=== PATIENT | female | born 1995 | race Caucasian/White ===

== ENCOUNTER 2021-01-03 22:00 | Emergency (ER) | payer MEDICAID, SELFPAY ==
[2021-01-03] MEDS: LORazepam (*CRX) 1 MG TABLET PO (22:18)
[2021-01-03 22:19] VITALS: BP 150/108; PULSE 120; RESP 14; TEMP 36.8; O2SAT 100
[2021-01-03 22:36] LABS: Basophils Absolute Auto 0.1 K/mm3 (0.0-0.1); Basophils Percent Auto 0.4 % (0.2-1.2); Eosinophils Percent Auto 0.1 % (0-4.4); Hemoglobin 11.4 g/dL (12.0-15.0); Immature Granulocyte Absolute 0.05 K/mm3 (0.00-0.031); Immature Granulocyte Percent A 0.3 % (0-0.5); Lymphocytes Absolute Auto 2.98 K/mm3 (0.9-3.2); Mean Corpuscular HGB Conc 29.2 g/dl (32-36); Mean Corpuscular Hemoglobin 23.3 pg (26-34); Mean Corpuscular Volume 79.6 fl (80-100); Mean Platelet Volume 9.7 fl (7.4-10.4); Monocytes Absolute Auto 0.9 K/mm3 (0.1-0.6); Monocytes Percent Auto 5.7 % (2.6-8.5); Neutrophils Absolute Auto 11.7 K/mm3 (1.3-6.7); Neutrophils Percent Auto 74.5 % (45.5-73.1); Platelet Count Result 468 k/mm3 (150-375); Red Cell Distribution Width 19.3 % (11.5-14.5); White Blood Count 15.7 K/mm3 (4.5-10.0)
[2021-01-03 22:47] LABS: Ethanol < 10 mg/dL (<10)
[2021-01-03 22:48] LABS: Alanine Aminotransferase 13 U/L (4-35); Albumin Level 4.4 g/dL (3.5-5.1); Alkaline Phosphatase 94 U/L (38-126); Anion Gap 9 mmol/L (8-16); Aspartate Amino Transferase 19 U/L (14-36); Bilirubin,Total 0.2 mg/dL (0.2-1.3); Calcium 9.3 mg/dL (8.4-10.2); Carbon Dioxide 27 mmol/L (22-30); Chloride 105 mmol/L (98-107); Estimated Glomerular Filt Rate > 60; Glucose 103 mg/dL (65-105); Potassium 3.2 mmol/L (3.4-5.0); Sodium 141 mmol/L (137-145)
[2021-01-03 22:54] LABS: Platelet Estimate Adequate (Adequate)
[2021-01-03 22:55] LABS: Hypochromasia 1+ (NORMAL)
--- NOTE | 2021-01-03 23:09 | PC.NURSE ---
Pt. requesting to leave. Pt. Alert and oriented x4 at this time. Pt. acting appropriately and answering all questions. per ERP pt. can be discharged once the [facility] is back as long as the pt. is released into custody of mother.
[2021-01-03] MEDS: NICOTINE (*PBKC) 21 MG PATCH 1 PATCH TRANSDERM (23:14)
[2021-01-03 23:35] LABS: Add Urine Microscopic? NO; Appearance Urine Clear (Clear); Bilirubin Urine Negative (Negative); Blood Urine Negative (Negative); Color Urine Yellow (Yellow); Glucose Urine UA Negative (Negative); Ketones Urine Negative (Negative); Leukocyte Esterase Ur Negative LEU/UL (Negative); Nitrate Urine Negative (Negative); Protein Urine Negative (Negative); Specific Grav Ur 1.009 (1.001-1.035); Urobilinogen Urine Negative mg/dL (<2.0)
[2021-01-03 23:45] LABS: Blood Urea Nitrogen < 2 mg/dL (7-17)
[2021-01-03 23:53] LABS: Amphetamine Screen Urine Positive (Negative); Barbiturate Screen Urine Negative (Negative); Benzodiazepines Screen Urine Positive (Negative); Cannabinoid Screen Urine Positive (Negative); Cocaine Screen Urine Negative (Negative); Methadone Screen Urine Negative (Negative); Opiate Screen Urine Negative (Negative); Phencyclidine Screen Urine Negative (Negative)
[2021-01-04] MEDS: POTASSIUM CHLORIDE 20 MEQ TABLET PO (00:09)
--- NOTE | 2021-01-04 00:13 | ED.PSYCH ---
HPI - Psych General Chief Complaint: Psychiatric Symptoms Stated Complaint: psych Time Seen by Provider: 01/03/21 22:03 Source: RN notes reviewed History of Present Illness HPI Narrative: Patient presents emergency department from home with her mother for psychiatric episode. The patient mother states patient has a history of schizophrenia and was at home with mother she states that over the past 2 weeks the patient has been having some increased episodes of saritha the patient does not take any regular medication and is not take any medication for numerous years per the patient she is followed by her primary care physician for psychiatric episodes patient denies any suicidal homicidal ideations denies any hallucinations mother states the patient had been upset and tearful this evening states has been under increased stress that she is positive for Covid 3 weeks ago and is concerned about getting her baby infected Related Data Allergies Allergy/AdvReac Type Severity Reaction Status Date / Time No Known Allergies Allergy Verified 01/03/21 22:30 Review of Systems Review of Systems: Narrative: Gen.: Denies fevers or chills Eyes: Denies eye pain or visual change ENT: Denies congestion Respiratory: Denies shortness of breath or cough CV: Denies chest pain or palpitations GI: Denies abdominal pain nausea, emesis or diarrhea Musculoskeletal: Denies back pain or muscle pain Neuro: Denies numbness, tingling, weakness or focal weakness Skin: Denies rash Psych see HPI Except as documented, all other systems reviewed and negative [facility] Past Medical History Medical History (Updated 01/04/21 @ 00:27 by Jose Lyons DO) Schizophrenia Social History Social History Substance use type: marijuana Gender identity (if verbalized by the patient): Female Exam Narrative: Exam Narrative: APPEARANCE: Tearful and anxious nontoxic EYES: PERRL HEENT: Normocephalic, atraumatic, OMM RESPIRATORY: No respiratory distress Clear to auscultation bilaterally with no rhonchi wheezing or rales. CARDIOVASCULAR: Regular rate and rhythm without murmurs rubs or gallops. ABDOMINAL: Soft, nontender, nondistended, no rebound or guarding MUSCULOSKELETAl: Moves all extremities. No clubbing, cyanosis or edema. NEURO: Awake and alert x 4. Following commands, speech normal, no focal deficits SKIN:: Warm, dry. No rashes lesions or abrasions PSYCHIATRIC: Normal affect/mood, Course Course Emergency Course: Patient given Ativan in ED feeling much better at this time patient is awake and alert x4 she states that she does follow with her PCP she denies having any suicidal homicidal ideation she denies any hallucinations. States she would like to go home at this time she is feeling better I discussed with the patient's mother who is also in agreement with the patient returning home and states that patient has a longstanding history of mental illness and has no concerns of the patient harming herself Discussed with patient results of workup and diagnosis. Discussed need for follow-up with primary care, proper use of medication, and reasons to return to the emergency department. Patient understands and agrees to current treatment plan Vital Signs Vital signs: Vital Signs Temperature 98.2 F 01/03/21 22:19 Pulse Rate 120 H 01/03/21 22:19 Respiratory Rate 14 01/03/21 22:19 Blood Pressure 150/108 H 01/03/21 22:19 Pulse Oximetry 100 01/03/21 22:19 Temperature 98.2 F 01/03/21 22:19 Pulse Rate 100 01/04/21 00:16 Respiratory Rate 17 01/04/21 00:16 Blood Pressure 137/96 H 01/04/21 00:16 Pulse Oximetry 97 01/04/21 00:16 MDM - Psych Lab Data Result diagrams: 01/03/21 22:30 01/03/21 22:30 Labs: Lab Results 01/03/21 01/03/21 01/03/21 Range/Units 22:30 22:30 22:30 WBC 15.7 H (4.5-10.0) K/mm3 RBC 4.90 (4.2-5.4) M/mm3 Hgb 11.4 L (12.0-15.0
[2021-01-04 00:16] VITALS: BP 137/96; PULSE 100; RESP 17; O2SAT 97
== END 2021-01-04 00:20 | disposition home or self-care (01) ==
PROVIDERS: Emergency Provider Emergency Medicine; PCP Family Medicine
DX: F20.9 Schizophrenia, unspecified (principal); Z86.16 Personal history of COVID-19
CPT/HCPCS: 36415; 80053; 80307; 81003; 81025; 84443; 85025; 99283; A9270